=== PATIENT | male | born 1945 | race Caucasian/White ===

== ENCOUNTER 2021-10-04 15:07 | Emergency (ER) | payer MEDICARE, OTHER | END 2021-10-04 17:10 | disposition home or self-care (01) | LOC: FB.ED 15:07 | DX: R42 Dizziness and giddiness (principal); I10 Essential (primary) hypertension | CPT/HCPCS: 36415; 70450; 80048; 84484; 85025; 93005; 93010; 99282; 99284-25 ==

== ENCOUNTER 2024-05-04 08:47 | Emergency (ER) | payer MEDICARE, OTHER ==
[2024-05-04] MEDS ORDERED: Sodium Chloride 0.9% 10 ML Syringe FLUSH PRN (09:16)
[2024-05-04] MEDS: Sodium Chloride 0.9% 1,000 ML IV ONE (09:26)
[2024-05-04 10:22] LABS: BASOPHILS PERCENT AUTO 0.3 % (0.3-3.8); EOSINOPHILS PERCENT AUTO 0.7 % (0.1-6.8); HEMATOCRIT 43.6 % (38.3-50.1); HEMOGLOBIN 14.7 g/dL (12.9-17.7); LYMPHOCYTES ABSOLUTE AUTO 0.8 x10-3/uL (0.5-4.5); LYMPHOCYTES PERCENT AUTO 14.4 % (15.8-45.3); MEAN CORPUSCULAR HEMOGLOBIN 31.6 pg (27.0-33.3); MEAN CORPUSCULAR HGB CONC 33.7 g/dL (28.7-35.3); MEAN CORPUSCULAR VOLUME 93.6 fL (80.8-98.7); MEAN PLATELET VOLUME 9.3 fL (6.7-11.0); MONOCYTES ABSOLUTE AUTO 0.4 x10-3/uL (0.0-1.2); MONOCYTES PERCENT AUTO 7.9 % (5.5-15.2); NEUTROPHILS ABSOLUTE AUTO 4.4 x10-3/uL (1.7-6.9); NEUTROPHILS PERCENT AUTO 76.7 % (40.3-71.8); PLATELET COUNT,PLT 176 x10(3)uL (117-477); RED BLOOD CELL COUNT 4.66 x10(6)uL (3.90-5.90); RED CELL DISTRIBUTION WIDTH 14.4 % (12.4-15.0); WHITE BLOOD CELL COUNT,WBC 5.7 x10-3/uL (3.2-10.1)
[2024-05-04 10:26] LABS: BLOOD UREA NITROGEN,BUN 14 mg/dL (7-18); BUN/CREATININE RATIO 17.5 (9-20); CARBON DIOXIDE,CO2 27 mmol/L (21-32); CHLORIDE,CL 112 mmol/L (100-110); CREATININE 0.8 mg/dL (0.70-1.30); ESTIMATED GFR 91 mL/min (>60); GLUCOSE RANDOM 111 mg/dL (80-116); POTASSIUM,K 4.6 mmol/L (3.5-5.3); SODIUM,NA 147 mmol/L (135-145)
[2024-05-04 10:33] LABS: A/G RATIO 1.2; ALANINE AMINOTRANSFERASE,ALT 30 U/L (12-36); ALKALINE PHOSPHATASE 71 IU/L (56-112); ASPARTATE AMNIOTRANSFERASE,AST 26 IU/L (5-25); BILIRUBIN TOTAL 0.5 mg/dL (0.1-1.3); PROTEIN TOTAL,TP 5.6 g/dL (6.0-8.0)
[2024-05-04 10:36] LABS: LACTIC ACID 0.9 mmol/L (0.4-2.0)
[2024-05-04 11:36] LABS: BILIRUBIN,URINE NEGATIVE (NEGATIVE); GLUCOSE,URINE NORMAL (NORMAL); KETONES,URINE NEGATIVE (NEGATIVE); LEUKOCYTE ESTERASE,URINE NEGATIVE (NEGATIVE); NITRITE,URINE NEGATIVE (NEGATIVE); OCCULT BLOOD,URINE NEGATIVE (NEGATIVE); PROTEIN,URINE NEGATIVE (NEGATIVE); UROBILINOGEN,URINE NORMAL (NEGATIVE)
[2024-05-04 11:37] LABS: APPEARANCE,URINE CLEAR (CLEAR); COLOR,URINE YELLOW (YELLOW)
[2024-05-04] MEDS: Iopamidol 755 Mg/ML 100 ML Bottle IV ONE (12:03)
== END 2024-05-04 16:00 ==
LOC: FB.ED 08:47
DX: I63.9 Cerebral infarction, unspecified (principal); J32.3 Chronic sphenoidal sinusitis; H74.92 Unspecified disorder of left middle ear and mastoid; I25.10 Atherosclerotic heart disease of native coronary artery without angina pectoris; I25.2 Old myocardial infarction; F17.210 Nicotine dependence, cigarettes, uncomplicated; Z79.82 Long term (current) use of aspirin; Z79.899 Other long term (current) drug therapy
CPT/HCPCS: 36415; 70450; 70496; 70498; 80053; 81003; 83605; 85025; 86140; 96360; 99285; J7030; Q9967

== ENCOUNTER 2025-03-26 05:50 | Day surgery (SDC) | payer MEDICARE, OTHER ==
[2025-03-26] MEDS ORDERED: Ketamine 500 mg/10 ML MDV IV ONE (05:51)
[2025-03-26] MEDS ORDERED: Midazolam 1 MG/ML 2 ML SDV IV ONE (05:51)
[2025-03-26] MEDS ORDERED: Propofol 200 MG/20 ML SDV IV ONE (05:51)
[2025-03-26] MEDS ORDERED: Sodium Chloride 0.9% 10 ML Syringe FLUSH PRN (06:15)
[2025-03-26] MEDS: Lactated Ringers 1,000 ML IV SCH (07:01)
== END 2025-03-26 09:25 | disposition home or self-care (01) ==
LOC: FB.SDS 05:50
PROVIDERS: ATTEND Surgery
DX: Z12.11 Encounter for screening for malignant neoplasm of colon (principal); D12.6 Benign neoplasm of colon, unspecified; K57.30 Diverticulosis of large intestine without perforation or abscess without bleeding; I10 Essential (primary) hypertension; E78.5 Hyperlipidemia, unspecified; I25.10 Atherosclerotic heart disease of native coronary artery without angina pectoris; F17.210 Nicotine dependence, cigarettes, uncomplicated; Z88.8 Allergy status to other drugs, medicaments and biological substances; Z86.0101 Personal history of adenomatous and serrated colon polyps; Z79.899 Other long term (current) drug therapy
CPT/HCPCS: 00811; 88305; 99100; A9270-GY; J2003; J2250; J2704; J3490; J7120